=== PATIENT | male | born 1980 | race Caucasian/White ===

== ENCOUNTER 2018-06-25 10:20 | Emergency (ER) | payer OTHER ==
[2018-06-25 10:35] VITALS: BP 158/77; PULSE 73; TEMP 98.3; BMI 19.8
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
== END 2018-06-25 12:09 | disposition home or self-care (01) ==
LOC: JERFT 10:20
DX: S13.4XXA Sprain of ligaments of cervical spine, initial encounter (principal); V43.52XA Car driver injured in collision with other type car in traffic accident, initial encounter; Y93.89 Activity, other specified; Y92.410 Unspecified street and highway as the place of occurrence of the external cause
CPT/HCPCS: 99281-25

== ENCOUNTER 2018-06-27 07:18 | Emergency (ER) | payer OTHER ==
[2018-06-27 07:32] VITALS: BP 108/65; PULSE 71; TEMP 98; BMI 19.8
[2018-06-27] MEDS ORDERED: KETOROLAC TROMETHAMINE 60 MG/2 ML VIAL IM ONE (08:20)
[2018-06-27] MEDS ORDERED: KETOROLAC TROMETHAMINE 60 MG/2 ML VIAL ONE (08:21)
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
== END 2018-06-27 09:44 | disposition home or self-care (01) ==
LOC: JER 07:18
DX: M54.5 Low back pain (principal); V43.52XD Car driver injured in collision with other type car in traffic accident, subsequent encounter; Y93.9 Activity, unspecified; Y92.9 Unspecified place or not applicable
CPT/HCPCS: 72070-TC-FY; 72100-TC-FY; 99281-25